=== PATIENT | female | born 1985 | race Caucasian/White ===

== ENCOUNTER 2020-11-08 12:47 | Outpatient (CLI) | payer OTHER ==
[2020-11-08] MEDS ORDERED: OMNIPAQUE 350 MG/ML, 100ML BOTTLE ONE (14:00)
== END 2020-11-08 23:59 | disposition home or self-care (01) ==
LOC: CFH 12:47
PROVIDERS: ATTEND Family Medicine
DX: N83.202 Unspecified ovarian cyst, left side (principal); R10.84 Generalized abdominal pain; K58.9 Irritable bowel syndrome, unspecified; K59.00 Constipation, unspecified; R19.7 Diarrhea, unspecified; N30.90 Cystitis, unspecified without hematuria; J98.4 Other disorders of lung
CPT/HCPCS: 74177; Q9967

== ENCOUNTER 2020-11-29 11:56 | Outpatient (CLI) | payer OTHER ==
[2020-11-29 12:20] LABS: BASOPHILS % (AUTO) 1 % (0-1); EOSINOPHILS % (AUTO) 1 % (1-7); LYMPHOCYTES % (AUTO) 26 % (22-44); MEAN CORPUSCULAR HEMOGLOBIN 33.2 pg (27.0-34.8); MEAN CORPUSCULAR HGB CONC 34.1 g/dL (32.4-35.8); MEAN PLATELET VOLUME 8.4 fL (7.4-10.4); MONOCYTES % (AUTO) 7 % (2-9); NEUTROPHILS % (AUTO) 66 % (42-75); PLATELET COUNT 211 x10^3/uL (130-400); RED BLOOD COUNT 3.86 x10^6/uL (3.82-5.3); RED CELL DISTRIBUTION WIDTH 13.7 % (9.6-15.2)
[2020-11-30 13:01] LABS: CRYPTOSPORIDIUM ANTIGEN Negative (Negative)
== END 2020-11-29 23:59 | disposition home or self-care (01) ==
LOC: LAB 11:56
PROVIDERS: ATTEND Internal Medicine
DX: R19.7 Diarrhea, unspecified (principal); R10.84 Generalized abdominal pain
CPT/HCPCS: 36415; 82784; 83516; 83993; 85025; 86255; 87046; 87328; 87329; 87427